=== PATIENT | female | born 1960 | race African-American/Black ===

== ENCOUNTER 2018-01-15 03:14 | Emergency (ER) | payer OTHER ==
[~2018-01-15] VITALS: Ht 160 cm; Wt 101.0 kg
[2018-01-15] MEDS ORDERED: IPRATROPIUM BROMIDE (0.02%) 0.5MG/2.5ML NEB HHN STA (03:32)
[2018-01-15] MEDS ORDERED: ALBUTEROL (0.083%) 2.5MG/3ML NEB HHN STA (03:32)
[2018-01-15] MEDS ORDERED: METHYLPREDNISOLONE SOD SUCC 125 MG/2 ML VIAL IV STA (03:32)
[2018-01-15] MEDS ORDERED: MAGNESIUM 2 G PREMIX 50 ML IV STA (03:32)
[2018-01-15 05:54] VITALS: BP 136/92
== END 2018-01-15 05:45 | disposition short-term general hospital (02) ==
LOC: ER 03:24
DX: J44.1 Chronic obstructive pulmonary disease with (acute) exacerbation (principal); R09.02 Hypoxemia; R91.8 Other nonspecific abnormal finding of lung field; J45.909 Unspecified asthma, uncomplicated; I10 Essential (primary) hypertension; Z87.891 Personal history of nicotine dependence; Z96.651 Presence of right artificial knee joint
CPT/HCPCS: 71045; 94644; 96365; 96375; 99285; J2930; J3475; J7611